=== PATIENT | female | born 1940 | race Caucasian/White ===

== ENCOUNTER → 2018-10-30 | Day surgery (SDC) | payer MEDICARE, BC ==
[2018-10-28 13:25] LABS: BASOPHILS % 0.3 % (0.0-1.0); EOSINOPHILS # (AUTO) 0.1 (0.0-0.4); EOSINOPHILS % 1.5 % (0.0-6.0); HEMATOCRIT 41.6 % (34.2-44.1); HEMOGLOBIN 13.9 g/dL (12.0-16.0); LYMPHOCYTES # (AUTO) 1.8 (1.0-3.2); LYMPHOCYTES % 30.4 % (18.0-39.1); MEAN CORPUSCULAR HGB CONC 33.4 g/dL (31-35); MEAN CORPUSCULAR VOLUME 92.9 fL (81-99); MONOCYTES # (AUTO) 0.5 (0.2-0.8); MONOCYTES % 8.8 % (4.4-11.3); NEUTROPHILS # (AUTO) 3.5 (2.1-6.9); NEUTROPHILS % 58.5 % (38.7-80.0); PLATELET COUNT 166 x10e3/uL (140-360); RED BLOOD COUNT 4.48 x10e6/uL (3.6-5.1); RED CELL DISTRIBUTION WIDTH 14.4 % (11.7-14.4)
[~2018-10-30] MED LIST: CALCIUM PO; CARAFATE1 GM PO; CHOLECALCIFEROL PO; COLESTIPOL HCL1 GM PO; FENTANYL CITRATE/PF 100MCG/2 ML INJ ONE; FISH OIL CONC1 EACH PO; METOPROLOL PO; MICARDIS40 MG PO; MIDAZOLAM HCL 2 MG/2 ML VIAL ONE; MULTIVITAMINS1 EAC7 PO; PROPOFOL IV EMULSION 10 MG/ML 50 ML VIAL ONE; RANITIDINE HCL150 MG PO; SIMVASTATIN40 MG PO; TURMERIC1 GM PO; VITAMIN E PO
--- OUTSIDE RECORDS SUMMARY | 2018-10-30 09:32 | XMS REPORT | Clinical Summary ---
Author Author [facility] Address Unknown Phone Unavailable Care Team Providers Care Senior Mortgage Underwriter Name Role Phone Jaren Martinez MD PCP Allergies No Known Allergies Medications Not on file Active Problems Not on file Social History Date Tobacco Use Types Packs/Day Years Used Never Smoker Alcohol Use Drinks/Week oz/Week Comments No Sex Assigned at Date Recorded Not on file Industry Job Start Date Occupation Not on file Not on file Not on file Travel End Travel History Travel Start No recent travel history available. Last Filed Vital Signs Not on file Plan of Treatment Health Maintenance Due Date Last Done Comments SHINGLES VACCINES (#1) 1990 65+ PNEUMOCOCCAL VACCINE 2005 (1 of 2 - PCV13) INFLUENZA VACCINE 10/16/2018 Results Not on fileafter 10/29/2017 Insurance Type Payer Benefit Subscriber ID Effective Phone Address Plan / Dates Group Medicare MEDICARE MEDICARE xxxxxxxxxx 2005-P QURESHI, PART A AND resent [place] B PPO BCBS BCBS xxxxxxxxxxxx 2016-P CHOICE resent PPO/MAYITO KRISHNAN PPO Advance Directives Patient has advance care planning documents on file. For more information, jo-ann betts contact: Titus Goodman [address] [place] [address]
[2018-10-30 12:15] VITALS: BP 124/71
--- NOTE | 2018-10-30 15:38 | Operative Report ---
DATE OF PROCEDURE: 10/30/2018 SURGEON: Daniel Garcia MD PROCEDURE PERFORMED: Colonoscopy. PREOPERATIVE DIAGNOSIS: History of colon polyps. POSTOPERATIVE DIAGNOSIS: Colon polyps. PREOPERATIVE MEDICATIONS: Consisted of IV sedation administered and MAC anesthesia. PROCEDURE IN DETAIL: Using an Olympus Musikki video colonoscope, it was inserted in the patient's rectum and advanced without difficulty to the level of the cecum. The colon was visualized from the cecum back down to the rectum. There were a total of four polyps, 4 mm each, I removed from the descending colon number 3 and sigmoid colon number 1 with the hot biopsy forceps. The colonoscope was withdrawn from the patient's rectum and the procedure was ended. In completion of history of colon polyps, colon polyps found in the descending colon and sigmoid colon. Daniel Garcia MD SAF/MODL /[id number]
== END | disposition home or self-care (01) ==
LOC: OR 09:30
PROVIDERS: ATTEND Internal Medicine Gastroenterology
DX: Z09 Encounter for follow-up examination after completed treatment for conditions other than malignant neoplasm (principal); D12.4 Benign neoplasm of descending colon; R19.7 Diarrhea, unspecified; R11.14 Bilious vomiting; R10.13 Epigastric pain; K21.0 Gastro-esophageal reflux disease with esophagitis; K44.9 Diaphragmatic hernia without obstruction or gangrene; I10 Essential (primary) hypertension; E78.5 Hyperlipidemia, unspecified; Z01.810 Encounter for preprocedural cardiovascular examination; Z01.812 Encounter for preprocedural laboratory examination; Z68.31 Body mass index [BMI] 31.0-31.9, adult
CPT/HCPCS: 36415; 45384; 85025; 93005; J2250; J2704; J3010; 45378